=== PATIENT | female | born 1960 | race Caucasian/White ===

== ENCOUNTER → 2018-02-14 | Outpatient (CLI) | payer BC ==
[~2018-02-14] MED LIST: DULO30 PO; Lamictal150 MG PO; OXYACE5T PO; RXOXYACE PO
[2018-02-16 11:26] LABS: HPV Genotype 16 Not Detected (NOTDET); HPV Genotype 18 Not Detected (NOTDET)
[2018-03-06 09:50] LABS: HPV High Risk Other Not Detected (NOTDET)
== END | disposition home or self-care (01) ==
LOC: LAB SHORT 15:48 → OLS 15:48
PROVIDERS: Obstetrics & Gynecology Gynecology
DX: Z12.4 Encounter for screening for malignant neoplasm of cervix (principal)
CPT/HCPCS: 87624; G0123

== ENCOUNTER 2019-04-02 07:05 | Day surgery (SDC) | payer OTHER ==
[~2019-04-02] VITALS: Ht 167.6 cm; Wt 65.5 kg
[2019-04-02] MEDS ORDERED: CLON2 PO (07:57)
[2019-04-02] MEDS ORDERED: BRINTELLIX10 MG (07:58)
[2019-04-02] MEDS ORDERED: AMPDEX5 PO (07:59)
--- NOTE | 2019-04-02 11:12 | NUR ---
04/02/19 1112 Kimberly Jean-Baptiste PT VERY SLOW TO WAKE. LMA REMOVED AT 1107. PT MOANING UNINTELLIGIBLY. PT VERBALLY DENIES PAIN OR NAUSEA WHEN ASKED. VSS.
--- NOTE | 2019-04-02 11:27 | NUR ---
04/02/19 1127 Kimberly Jean-Baptiste PT MUMBLING INCONHERENTLY. PT HOLDING FACE WITH LEFT, NON-OPERATIVE, HAND. PT DENIES PAIN, HEADACHE OR NAUSEA. PT ANSWERS QUESTIONS APPROPRIATELY. VSS.
== END 2019-04-02 12:27 | disposition home or self-care (01) ==
LOC: ORSCSDS 07:05
PROVIDERS: Orthopaedic Surgery
PROC: 0LX50ZZ Transfer Right Lower Arm and Wrist Tendon, Open Approach (ICD-10-PCS; principal; 2019-04-02 08:30)
PROC: 0RGU04Z Fusion of Right Metacarpophalangeal Joint with Internal Fixation Device, Open Approach (ICD-10-PCS; principal; 2019-04-02 08:30)
DX: M18.11 Unilateral primary osteoarthritis of first carpometacarpal joint, right hand (principal); Z79.899 Other long term (current) drug therapy
CPT/HCPCS: C1713; C1769; J1100; J1885; J2250; J2405; J2704; J2765; J2795; J3010; J7120

== ENCOUNTER 2020-02-06 09:31 | Day surgery (SDC) | payer OTHER ==
[~2020-02-06] VITALS: Ht 167.6 cm; Wt 64.5 kg
[~2020-02-06 09:31] MED LIST changes: +AMPDEX30CR PO; +AMPDEX5 PO; +BRINTELLIX10 MG; +CLON2 PO; +ERGO50000 PO; +LAMICTAL XR300 MG PO; +ZIPR80 PO
--- NOTE | 2020-02-06 10:33 | NUR ---
02/06/20 [address] RONDON THAT THE PATIENT ADMITS TO EATTING A BITE OF APPLE CRISP AT 0600. DR RONDON WANTS TO WAIT THE [address] BENAVIDES NOTIFIED. DR BENAVIDES WILL TRY TO FIT HER INTO THE SCHEDULE THIS AFTERNOON, BUT JOLYNN CORDON THAT IT CAN BE DONE. PT AGREES TO WAIT AND SEE HOW THE SCHEDULE GOES KNOWING THAT SHE MAY NEED TO RESCHEDULE.
== END 2020-02-06 10:40 | disposition home or self-care (01) ==
LOC: ORSCSDS 09:31
DX: G56.21 Lesion of ulnar nerve, right upper limb (principal); Z53.9 Procedure and treatment not carried out, unspecified reason
CPT/HCPCS: J7120

== ENCOUNTER 2020-04-09 06:16 | Day surgery (SDC) | payer MEDICARE, OTHER ==
[~2020-04-09] VITALS: Ht 168 cm; Wt 65.4 kg
--- NOTE | 2020-04-09 07:20 | NUR ---
Ambulatory in Day Surgery History, Chart, Medications and Allergies reviewed before start of procedure.Patient confirms NPO status and agrees with scheduled surgery. Lungs clear T/O to Auscultation.
--- NOTE | 2020-04-09 08:48 | NUR ---
04/09/20 0848 Beatriz Lin ALL COUNTS CORRECT.
--- NOTE | 2020-04-09 10:23 | NUR ---
DISCHARGE Patient up to Ambulate independently. Gait steady. Discharge instructions reviewed with patient. Patient verbalizes understanding. Copy given to patient to take home. Dressing to procedure site clean, dry, intact with no visible drainage, swelling, erythema or bruising noted. Patient States Post-Procedure ride home has been arranged. Discharged via wheelchair to private car for ride home. PT NAUSEA HAS RESOLVED AND PAIN IS ACCEPTABLE AFTER PAIN MEDICATION PT GIVEN HARD RX FOR HYDROCODONE IV DC DAUGHTER MARITZA WAS DATABASE DBA FOR DISCHARGE
== END 2020-04-09 23:47 | disposition home or self-care (01) ==
LOC: ORSCMMR 06:16 → ORD 08:00 → ORSCMMR 08:00
PROVIDERS: Orthopaedic Surgery
PROC: 01S40ZZ Reposition Ulnar Nerve, Open Approach (ICD-10-PCS; principal; 2020-04-09 08:00)
DX: G56.21 Lesion of ulnar nerve, right upper limb (principal)
CPT/HCPCS: A9270-GY; J1100; J1885; J2250; J2405; J2704; J2765; J3010; J7120